=== PATIENT | female | born 1990 | race African-American/Black ===

== ENCOUNTER 2023-03-05 09:44 | Emergency (ER) | payer OTHER, MEDICAID ==
[~2023-03-05] VITALS: Ht 170.2 cm; Wt 117.5 kg
[2023-03-05 09:59] VITALS: BP 162/97; PULSE 83; RESP 18; TEMP 97.4; O2SAT 97
[2023-03-05] MEDS ORDERED: KETOROLAC 30 MG/ML VIAL IM ONE (11:40)
--- NOTE | 2023-03-05 12:02 | NUR ---
PT TAKEN OFF UNIT TO RADIOLOGY BY W/Chaz
--- NOTE | 2023-03-05 12:08 | NUR ---
PT TAKEN BY W/C TO LOBBY.
[2023-03-05] MEDS ORDERED: ACET-10509 PO (14:19)
[2023-03-05] MEDS ORDERED: CYCL-711 PO (14:19)
[2023-03-05] MEDS ORDERED: IBUP-2213 PO (14:19)
[2023-03-05] MEDS ORDERED: LID5T TP (14:19)
[2023-03-05 14:43] VITALS: BP 159/96; PULSE 80; RESP 20; TEMP 97.6; O2SAT 97
--- NOTE | 2023-03-05 14:43 | NUR ---
Patient discharged with v/s stable. Written and verbal after care instructions given and explained. Patient alert, oriented and verbalized understanding of instructions. Ambulatory with steady gait. All questions addressed prior to discharge. ID band removed. Patient advised to follow up with PMD. Rx of tylenol,flexeril,ibuprofen,lidoderm patch given. Patient educated on indication of medication including possible reaction and side effects. Opportunity to ask questions provided and answered.
== END 2023-03-05 14:43 | disposition home or self-care (01) ==
LOC: MED 09:44
DX: S16.1XXA Strain of muscle, fascia and tendon at neck level, initial encounter (principal); S46.812A Strain of other muscles, fascia and tendons at shoulder and upper arm level, left arm, initial encounter; I10 Essential (primary) hypertension; E11.9 Type 2 diabetes mellitus without complications; Z79.899 Other long term (current) drug therapy; V89.2XXA Person injured in unspecified motor-vehicle accident, traffic, initial encounter; Y93.89 Activity, other specified; Y92.89 Other specified places as the place of occurrence of the external cause; Y99.8 Other external cause status
CPT/HCPCS: 72125; 81025; 96372; 99285; J1885